=== PATIENT | female | born 1950 | race Caucasian/White ===

== ENCOUNTER 2018-10-08 08:37 | Day surgery (SDC) | payer MEDICARE, OTHER ==
[~2018-10-08 08:37] MED LIST: Lactated Ringers 1,000 ML IV SCH; Lidocaine 1%/Sod Bicarbonate in NS 8.4% 1 ML Syringe IDERM PRN; Sodium Chloride 0.9% 10 ML Syringe FLUSH PRN
[2018-10-08] MEDS ORDERED: Albuterol 0.083% 2.5 MG/3 ML Neb Soln NEB ONE (09:26)
[2018-10-08] MEDS ORDERED: Lidocaine 1% 30 ML SDV ONE (09:44)
[2018-10-08] MEDS ORDERED: Bupivacaine 0.25% 30 ML SDV ONE (09:45)
[2018-10-08] MEDS ORDERED: Clindamycin Phosphate 900 MG in Sodium Chloride 0.9% 100 ML IV ONE (10:00)
--- NOTE | 2018-10-08 11:29 | PCM.PREANE ---
Preanesthetic Assessment - Anesthesia/Transfusion/Family Hx Anesthesia History: Prior Anesthesia Without Reaction Family History of Anesthesia Reaction: No Transfusion History: No Prior Transfusion(s) - Review of Systems General: No Symptoms Pulmonary: Wheezing, Cough (due to smoking and COPD) Cardiovascular: No Symptoms Gastrointestinal: No Symptoms Neurological: No Symptoms Other: Reports: None - Physical Assessment NPO Status Date: 10/07/18 NPO Status Time: 22:00 Pulse: 70 O2 Sat by Pulse Oximetry: 92 Respiratory Rate: 16 Blood Pressure: 114/74 Temperature: 97.6 C Vital Signs: Last Vital Signs Temp 36.4 C 10/08/18 08:50 Pulse 70 10/08/18 08:50 Resp 16 10/08/18 08:50 BP 114/74 10/08/18 08:50 Pulse Ox 91 L 10/08/18 09:47 Height: 1.57 m Weight: 58.06 kg ASA Class: 2 Mental Status: Alert & Oriented x3 Airway Class: Mallampati = 1 Dentition: Reports: Normal Dentition, Dentures (upper and lower dentures) Thyro-Mental Finger Breadths: 3 Mouth Opening Finger Breadths: 3 ROM/Head Extension: Full Lungs: Wheezing (bilateral) Cardiovascular: Regular Rate, Regular Rhythm - Lab Values: Laboratory Last Values MRSA (PCR) Negative 09/30/18 15:00 - Allergies Allergies/Adverse Reactions: Allergies Allergy/AdvReac Type Severity Reaction Status Date / Time Penicillins Allergy Anaphylactic Verified 10/07/18 14:41 Shock - Acknowledgements Anesthesia Type Planned: MAC Pt an Appropriate Candidate for the Planned Anesthesia: Yes Alternatives and Risks of Anesthesia Discussed w Pt/Guardian: Yes Pt/Guardian Understands and Agrees with Anesthesia Plan: Yes PreAnesthesia Questionnaire HEENT History: Reports: Hard of Hearing, Impaired Vision, Other (See Below) Other HEENT History: has glasses, dentures Cardiovascular History: Reports: Hypertension Respiratory History: Reports: Asthma (pt states had asthma in the past not sure if it is still a current diagnosis), Bronchitis, Recurrent, COPD (has inhalers, prn) Gastrointestinal History: Reports: Other (See Below) Other Gastrointestinal History: ulcer Genitourinary History: Reports: None [employer] History: Reports: None Musculoskeletal History: Reports: Arthritis, Back Pain, Chronic, RA Neurological History: Reports: Headaches, Chronic (mild headache today) Psychiatric History: Reports: Depression, Other (See Below) Other Psychiatric History: eating disorder Endocrine/Metabolic History: Reports: None Hematologic History: Reports: None Immunologic History: Reports: None Oncologic (Cancer) History: Reports: None Dermatologic History: Reports: None - Past Surgical History Head Surgeries/Procedures: Reports: None HEENT Surgical History: Reports: Cataract Surgery Respiratory Surgical History: Reports: None GI Surgical History: Reports: Appendectomy, Cholecystectomy, Colonoscopy Female Surgical History: Reports: Hysterectomy, Tubal Ligation Male Surgical History: Reports: None Endocrine Surgical History: Reports: None Neurological Surgical History: Reports: None Musculoskeletal Surgical History: Reports: Other (See Below) Other Musculoskeletal Surgeries/Procedures:: left shoulder surgery Oncologic Surgical History: Reports: None Dermatological Surgical History: Reports: None - SUBSTANCE USE Smoking Status *Q: Current Every Day Smoker Recreational Drug Use History: No - HOME MEDS Home Medications: Home Meds Divalproex Sodium [Depakote ER] 500 mg PO DAILY 10/07/18 [History] Ibuprofen 400 mg PO BID PRN 10/07/18 [History] Multivitamin [Daily Multiple Vitamin] 1 tab PO DAILY 10/07/18 [History] Venlafaxine HCl [Venlafaxine ER] 225 mg PO DAILY 10/07/18 [History] busPIRone HCl [Buspirone HCl] 15 mg PO BID 10/07/18 [History] Acetaminophen/HYDROcodone [[place] 325-5 MG] 1 - 2 tab PO Q6H PRN #15 tablet 10/08 [Rx] - CURRENT (IN HOUSE) MEDS Current Meds: Current Medications Lactated Ringer's (Ringers, Lactated) 1,000 mls @ 125 mls/hr IV ASDIRECTED LETTY Stop: 10/08/18 23:00 Lidocaine/Sodium Bicarbonate (Buffered Lidocaine 1% In Ns 8.4%) 0.25 ml IDERM ONETIME PRN PRN Reason: Prior to IV Start Stop: 10/08/18 18:00 Sodium Chloride (Saline Flush) 10 ml FLUSH ASDIRECTED PRN PRN Reason: Keep Vein Open Stop: 10/08/18 18:00 Discontinued Medications Albuterol (Proventil Neb Soln) 2.5 mg NEB ONETIME ONE Stop: 10/08/18 09:27 Last Admin: 10/08/18 09:43 Dose: 2.5 mg Bupivacaine HCl (Marcaine 0.25%) Confirm Administered Dose 30 ml .[email or web address] ONE Stop: 10/08/18 09:46 Clindamycin Phosphate 900 mg/ (Sodium Chloride) 106 mls @ 212 mls/hr IV ONETIME ONE Stop: 10/08/18 10:29 Last Admin: 10/08/18 10:17 Dose: 212 mls/hr Lidocaine HCl (Xylocaine-Mpf 1%) Confirm Administered Dose 30 ml .ROUTE [email or web address] ONE Stop: 10/08/18 09:45
[2018-10-08] MEDS ORDERED: Lidocaine 1% 2 ML ONE ×2 (11:34)
[2018-10-08] MEDS ORDERED: Propofol 200 MG/20 ML SDV ONE (11:34)
[2018-10-08] MEDS ORDERED: Midazolam 1 MG/ML 2 ML SDV ONE (11:35)
[2018-10-08] MEDS ORDERED: fentaNYL 100 MCG/2 ML SDV ONE (11:35)
[2018-10-08] MEDS ORDERED: Ondansetron 4 MG/2 ML SDV ONE (11:57)
--- NOTE | 2018-10-08 12:22 | PCM48HPAN ---
Post Anesthesia Note - EVALUATION WITHIN 48HRS OF ANESTHETIC Vital Signs in Normal Range: Yes Patient Participated in Evaluation: Yes Respiratory Function Stable: Yes Airway Patent: Yes Cardiovascular Function Stable: Yes Hydration Status Stable: Yes Pain Control Satisfactory: Yes Nausea and Vomiting Control Satisfactory: Yes Mental Status Recovered: Yes Pulse Rate: 83 SaO2: 95 Resp Rate: 17 Temperature: 97.6 C Blood Pressure: 122/71 - COMMENTS/OBSERVATIONS Free Text/Narrative:: pt on O2 @ 2L/NC, HOB elevated, no c/o
--- NOTE | 2018-10-08 14:12 | PCM.OPNOTE ---
- General Post-Op/Procedure Note Date of Surgery/Procedure: 10/08/18 Operative Procedure(s): bilateral carpal tunnel release Pre Op Diagnosis: bilateral median nerve compression neuropathy Post-Op Diagnosis: Same Anesthesia Technique: Local, MAC Primary Surgeon: Gordo Vasques Anesthesia Provider: Anna Marie White Knockdown Man: Rebecca Marquis EBL in mLs: 5 Complications: None Condition: Good Free Text/Narrative:: Intake & Output 10/07/18 10/08/18 10/08/18 22:59 06:59 14:59 Intake Total 200 Balance 200
--- NOTE | 2018-10-09 11:13 | OR ---
DATE OF OPERATION: 10/08/2018 SURGEON: Gordo Vasques MD OPERATION PERFORMED: Bilateral carpal tunnel release. PREOPERATIVE DIAGNOSIS: Bilateral median nerve compression neuropathy. POSTOPERATIVE DIAGNOSIS: Bilateral median nerve compression neuropathy. ANESTHESIA: Local MAC. ANESTHESIA PROVIDER: Anna Marie White CRNA. SCRATCH POLISHER: Rebecca Marquis PA-C. ESTIMATED BLOOD LOSS: Less than 5 mL. COMPLICATIONS: None. CONDITION: Stable. DESCRIPTION OF PROCEDURE: The patient was identified in the preop holding area. Proper site was marked and identified by the surgeon. The patient was taken back to the operating theater where after adequate anesthesia, the patient's bilateral upper extremities were sterilely prepped and draped in the usual sterile fashion. OR time-out was performed. The patient did not receive antibiotics and is not indicated for soft tissue hand procedure. At this time, the left upper extremity was exsanguinated with the use of an Esmarch as a tourniquet on the forearm. 1% lidocaine without epinephrine and 0.25% Marcaine without epinephrine were used to anesthetize the palmar cutaneous branch of the median nerve as well as incisional site using Rangel's cardinal line and ulnar border of the fourth digit. Once this had set up and incision was made, blunt dissection was taken down to the palmar cutaneous fascia. The palmar cutaneous fascia was identified. A small rent was then made in the transverse carpal ligament, and a tenotomy scissor was used for release of the transverse carpal ligament all the way distally under direct visualization making sure to stop short of the palmar arch. At this time, attention was turned proximally. With the use of tenotomy scissors, the superficial forearm fascia as well as the transverse carpal ligament were resected all the way proximally making sure to keep the tips ulnar to protect the palmar cutaneous branch of the median nerve. At this time, adequate saline was irrigated through the wound. 4-0 nylon sutures were used for closure of the skin. A sterile soft dressing was applied. Attention was then turned to the right upper extremity. At this time, secondary to the IV set, I did not use the Esmarch and 1% lidocaine without epinephrine and 0.25% Marcaine without epinephrine were used to anesthetize as same fashion as the other side. Incision then was again made down to the transverse carpal ligament, and again, a tenotomy scissor was used for dissection of the transverse carpal ligament all the way distally on the right side. It was found to be adequately released. Attention was turned proximally and again, it was released in a similar fashion with no complications. Adequate saline was irrigated through the wound. It was closed in a similar fashion. Sterile soft dressing was applied to the bilateral upper extremities. The patient tolerated both procedures well and sent to PACU in stable condition. RICHARD /[id number]
== END 2018-10-08 13:10 | disposition home or self-care (01) ==
LOC: JD.SDS 08:37
PROVIDERS: ATTEND Orthopaedic Surgery
DX: G56.03 Carpal tunnel syndrome, bilateral upper limbs (principal); I10 Essential (primary) hypertension; J44.9 Chronic obstructive pulmonary disease, unspecified; Z79.899 Other long term (current) drug therapy; Z88.0 Allergy status to penicillin
CPT/HCPCS: 01810; 87641; 94640; J2001; J2250; J2405; J2704; J3010; J3490; J7030

== ENCOUNTER 2019-07-01 07:00 | Day surgery (SDC) | payer MEDICARE, MEDICAID ==
--- NOTE | 2019-07-01 07:26 | PCM.PREANE ---
Preanesthetic Assessment - Procedure Proposed Procedure: lEFT SHOULDER rcr - Anesthesia/Transfusion/Family Hx Anesthesia History: Prior Anesthesia Without Reaction Family History of Anesthesia Reaction: No Transfusion History: No Prior Transfusion(s) - Review of Systems General: No Symptoms Pulmonary: No Symptoms Cardiovascular: No Symptoms Gastrointestinal: No Symptoms Neurological: Numbness (LEFT HAND), Tingling (left hand) Other: Reports: None - Physical Assessment NPO Status Date: 06/30/19 NPO Status Time: 00:00 Height: 1.57 m Weight: 59.4 kg ASA Class: 2 Mental Status: Alert & Oriented x3 Dentition: Reports: Dentures Thyro-Mental Finger Breadths: 3 Mouth Opening Finger Breadths: 3 ROM/Head Extension: Limited/Partial (side to side with shoulder pain) Lungs: Clear to Auscultation, Normal Respiratory Effort Cardiovascular: Regular Rate, Regular Rhythm - Lab Values: Laboratory Last Values MRSA (PCR) Negative 06/30/19 13:23 - Allergies Allergies/Adverse Reactions: Allergies Allergy/AdvReac Type Severity Reaction Status Date / Time Penicillins Allergy Anaphylactic Verified 06/30/19 10:26 Shock - Blood Blood Available: No Product(s) Available: None - Anesthesia Plan Pre-Op Medication Ordered: None - Acknowledgements Anesthesia Type Planned: General Anesthesia, Regional Block (left interscalene block for post-op pain control) Pt an Appropriate Candidate for the Planned Anesthesia: Yes Alternatives and Risks of Anesthesia Discussed w Pt/Guardian: Yes Pt/Guardian Understands and Agrees with Anesthesia Plan: Yes PreAnesthesia Questionnaire HEENT History: Reports: Impaired Vision, Other (See Below) Other HEENT History: Full upper and lower dentures Cardiovascular History: Reports: None Respiratory History: Reports: None Gastrointestinal History: Reports: None Other Gastrointestinal History: ulcer Genitourinary History: Reports: None DIRECTOR MEDICAL History: Reports: Musculoskeletal History: Reports: Other (See Below) Other Musculoskeletal History: Bilateral carpal tunnel syndrome Neurological History: Reports: Migraines Psychiatric History: Reports: Anxiety, Depression Other Psychiatric History: eating disorder Endocrine/Metabolic History: Reports: None Hematologic History: Reports: None Immunologic History: Reports: None Oncologic (Cancer) History: Reports: None Dermatologic History: Reports: None - Past Surgical History Head Surgeries/Procedures: Reports: None HEENT Surgical History: Reports: None Cardiovascular Surgical History: Reports: None Respiratory Surgical History: Reports: None GI Surgical History: Reports: Appendectomy, Cholecystectomy Female Surgical History: Reports: Hysterectomy, Tubal Ligation Endocrine Surgical History: Reports: None Neurological Surgical History: Reports: None Musculoskeletal Surgical History: Reports: Other (See Below) Other Musculoskeletal Surgeries/Procedures:: Bilateral carpal tunnel release, Right shoulder rotator cuff repair Oncologic Surgical History: Reports: None Dermatological Surgical History: Reports: None - SUBSTANCE USE Smoking Status *Q: Current Every Day Smoker Tobacco Use Within Last Twelve Months: Cigarettes Second Hand Smoke Exposure: Yes Days Per Week of Alcohol Use: 1 Number of Drinks Per Day: 1 Total Drinks Per Week: 1 Recreational Drug Use History: Yes Recreational Drug Type: Reports: Methamphetamine - HOME MEDS Home Medications: Home Meds Divalproex Sodium [Depakote ER] 500 mg PO DAILY 10/07/18 [History] Multivitamin [Daily Multiple Vitamin] 1 tab PO DAILY 10/07/18 [History] Venlafaxine HCl [Venlafaxine ER] 225 mg PO DAILY 10/07/18 [History] busPIRone HCl [Buspirone HCl] 15 mg PO BID 10/07/18 [History] Acetaminophen/HYDROcodone [[place] 325-5 MG] 1 - 2 tab PO Q6H PRN #40 tablet 07/01 [Rx] Cyclobenzaprine [Flexeril] 5 mg PO BID PRN #20 tab 07/01/19 [Rx] - CURRENT (IN HOUSE) MEDS Current Meds: Current Medications Epinephrine HCl (Adrenalin) 3 mg .XX ONETIME LETTY Stop: 07/01/19 13:00 Lactated Ringer's (Ringers, Lactated) 1,000 mls @ 125 mls/hr IV ASDIRECTED LETTY Stop: 07/01/19 23:00 Clindamycin Phosphate 900 mg/ (Premix) 50 mls @ 100 mls/hr IV ONETIME LETTY Stop: 07/01/19 12:00 Lidocaine/Sodium Bicarbonate (Buffered Lidocaine 1% In Ns 8.4%) 0.25 ml IDERM ONETIME PRN PRN Reason: Prior to IV Start Stop: 07/01/19 18:00 Sodium Chloride (Saline Flush) 10 ml FLUSH ASDIRECTED PRN PRN Reason: Keep Vein Open Stop: 07/01/19 18:00
[2019-07-01] MEDS ORDERED: Rocuronium 50 MG/5 ML Vial ONE (07:36)
[2019-07-01] MEDS ORDERED: Ondansetron 4 MG/2 ML SDV ONE (07:36)
[2019-07-01] MEDS ORDERED: Propofol 200 MG/20 ML SDV ONE (07:36)
[2019-07-01] MEDS ORDERED: fentaNYL 100 MCG/2 ML SDV ONE ×2 (07:37→09:00)
[2019-07-01] MEDS ORDERED: Lidocaine 1% 4 ML ONE (07:37)
[2019-07-01] MEDS ORDERED: Midazolam 1 MG/ML 2 ML SDV ONE (07:37)
[2019-07-01] MEDS ORDERED: Lidocaine 1% 2 ML ONE (07:40)
[2019-07-01] MEDS ORDERED: Ropivacaine 0.5% 5 MG/ML 30 ML SDV ONE (07:46)
[2019-07-01] MEDS ORDERED: Clindamycin Phosphate in D5W 900 MG in Premix Bag 1 BAG IV SCH ×2 (08:00)
[2019-07-01] MEDS ORDERED: EPINEPHrine 1 MG/ML 30 ML MDV SCH (08:00)
--- NOTE | 2019-07-01 08:22 | PCM.SN ---
- Free Text/Narrative Note: Date: 07/01/2019 Time Out: 0753 Start: 075 Stop: 0808 Surgical Procedure: Left Shoulder Video Arthroscopy with Rotator Cuff Repair Diagnosis: Left shoulder pain Current Procedure: Left interscalene block under US guidance for postoperative pain control requested by Dr. Vasques. Patient chart reviewed, risk/benefits discussed with patient, consent obtained. Patient positioned supine, monitors/alarms on, oxygen placed via nasal cannula at 2 LPM. IV sedation administered: Versed 2mg IV Fentanyl 100mcg IV Left shoulder prepped with chloraprep x2. Sterile drapes placed with aseptic technique. Under US guidance (sterile US sleeve) right subclavian artery visualized along with the left brachial plexus. Plexus followed cephalad up to C6 cricoid level, and area localized with 2mls of 1% lidocaine. 22gauge 2 inch stimiplex needle inserted under US and guided to brachial plexus C5-C6 trunks with 0.44mV with stimulation of biceps noted. Stimulation abolished at 0.4mVs. with 1ml of Normal Saline injected to confirm needle not placed intraneurally. Incremental injection of 5mls with negative aspiration prior to each injection of 0.5% ropivacaine with 1:200,000 epinephrine. Total volume=30mls. Please refer to nurses notes for vital signs, patient tolerated procedure well. Thank you! Sid Mahajan CRNA
[2019-07-01] MEDS ORDERED: fentaNYL 100 MCG/2 ML SDV IVPUSH PRN (10:34)
--- NOTE | 2019-07-01 10:35 | PCM.POSTAN ---
POST ANESTHESIA ASSESSMENT - MENTAL STATUS Mental Status: Alert, Oriented - VITAL SIGNS Vital Signs: Last Vital Signs Temp 36.7 C 07/01/19 07:05 Pulse 69 07/01/19 08:05 Resp 16 07/01/19 08:10 BP 116/70 07/01/19 08:10 Pulse Ox 94 L 07/01/19 08:10 - RESPIRATORY Respiratory Status: Respiratory Rate WNL, Airway Patent, O2 Saturation Stable, Supplemental Oxygen - CARDIOVASCULAR CV Status: Pulse Rate WNL, Blood Pressure Stable - GASTROINTESTINAL GI Status: No Symptoms - PAIN Pain Score: 0 - POST OP HYDRATION Hydration Status: Adequate & Stable - OBSERVATIONS Free Text/Narrative:: no anesthesia complications noted
[2019-07-01] MEDS ORDERED: Albuterol 0.083% 2.5 MG/3 ML Neb Soln ONE (11:41)
[2019-07-01] MEDS ORDERED: Albuterol 0.083% 2.5 MG/3 ML Neb Soln NEB ONE (12:00)
--- NOTE | 2019-07-01 12:14 | PCM48HPAN ---
Post Anesthesia Note - EVALUATION WITHIN 48HRS OF ANESTHETIC Vital Signs in Normal Range: Yes Patient Participated in Evaluation: Yes Respiratory Function Stable: Yes Airway Patent: Yes (breathing treatment) Cardiovascular Function Stable: Yes Hydration Status Stable: Yes Pain Control Satisfactory: Yes Nausea and Vomiting Control Satisfactory: Yes Mental Status Recovered: Yes Vital Signs: Last Vital Signs Temp 36.2 C 07/01/19 11:15 Pulse 69 07/01/19 08:05 Resp 17 07/01/19 11:15 BP 135/79 07/01/19 11:15 Pulse Ox 95 07/01/19 11:44 - COMMENTS/OBSERVATIONS Free Text/Narrative:: no anesthesia complications noted
--- NOTE | 2019-07-05 10:11 | PCM.OPNOTE ---
- General Post-Op/Procedure Note Date of Surgery/Procedure: 07/01/19 Operative Procedure(s): left shoulder video arthroscopy with large rotator cuff repair, biceps tenotomy and extensive debridement Pre Op Diagnosis: left shoulder rotator cuff tear with bursitis Post-Op Diagnosis: Same Anesthesia Technique: General ET Tube, Regional Block Primary Surgeon: Gordo Vasques Anesthesia Provider: Sid Mahajan [employer] Team Member: Rebecca Marquis EBL in mLs: 5 Complications: None Condition: Good
--- NOTE | 2019-07-05 10:59 | OR ---
DATE OF OPERATION: 07/01/2019 SURGEON: Gordo Vasques MD OPERATION PERFORMED: Left shoulder video arthroscopy with large rotator cuff repair, biceps tenotomy, and extensive debridement. PREOPERATIVE DIAGNOSIS: Left shoulder rotator cuff tear with bursitis. POSTOPERATIVE DIAGNOSIS: Left shoulder rotator cuff tear with bursitis with biceps tendinopathy. ANESTHESIA: General endotracheal intubation with regional interscalene block. ANESTHESIA PROVIDER: Kendrick Martinez. SURVEY RESEARCH MANAGER: Rebecca Marquis PA-C. ESTIMATED BLOOD LOSS: Less than 5 mL. COMPLICATIONS: None. CONDITION: Stable. DESCRIPTION OF PROCEDURE: The patient was identified in the preoperative holding area. Proper site was marked and identified by the surgeon. The patient was taken back to the operating theater where after adequate anesthesia, the patient's left upper extremity was sterilely prepped and draped in the usual sterile fashion. A wedge was placed posteriorly. The patient was secured to the table. Left upper extremity then had 10 pounds of traction applied. OR time-out was performed. The patient received 2 g IV Ancef. At this time, standard posterior incision was made. The scope trocar was introduced to the glenohumeral joint. With the use of a spinal needle, anterior portal was then created with outside-in technique. The patient was noted to have full-thickness rotator cuff tear of the supraspinatus as well as the anterior portion of the infraspinatus with no retraction. She had significant biceps fraying and tendinopathy noted as well as chondrocalcinosis of the glenoid and the anterior labrum. At this time, it was decided secondary to the patient's severe degenerative changes of the biceps tendon, a biceps tenotomy would be performed. Biceps tenotomy was completed and was found to be lodged in the groove. An extensive debridement of synovitis was then done inside the joint and attention was turned to the subacromial space, and a lateral portal was then created with the use of a spinal needle, and an extensive debridement of the severe synovitis and bursitis were then undertaken at this time. After this, a heidy was then used to create a good bony bleeding bed in the previous footprint of the supraspinatus. One 4.75 mm triple loaded anchor with FiberTape was then placed medially. The patient was noted to have significant osteoporotic bone. I was able to just push the awl in with my hand with little difficulty. The anchor did have good fixation though. At this time, the 4 limbs of FiberWire as well as the 2 limbs of FiberTape were placed anteriorly to posteriorly and was found to have adequate coverage of the tear. The 4 limbs of FiberWire were tied medially for a medial row repair. One suture limb from each of those was then cut, and then the 2 limbs of FiberTape and 2 limbs of FiberWire were then brought out laterally. Another 4.75 mm Arthrex SwiveLock anchor was then placed laterally and the 4 limbs of the previous medial row were then placed in this and/or tensioned until it had good compression across the rotator cuff tear site. The suture limbs were then cut. At this time, it was decided I would not do a subacromial decompression as the patient did have severely osteoporotic bone. She has a very small BMI and possibly need for possible reverse total shoulder arthroplasty in the future. Excess saline was drained from the shoulder. 3-0 nylon suture was used for closure of the skin. The patient was placed in a sterile soft dressing and a pillow sling and sent to PACU in stable condition. MMARMANDO /[id number]
== END 2019-07-01 12:30 | disposition home or self-care (01) ==
LOC: JD.SDS 07:00
PROVIDERS: ATTEND Orthopaedic Surgery
DX: M75.122 Complete rotator cuff tear or rupture of left shoulder, not specified as traumatic (principal); M75.52 Bursitis of left shoulder; M75.22 Bicipital tendinitis, left shoulder; G43.909 Migraine, unspecified, not intractable, without status migrainosus; F17.210 Nicotine dependence, cigarettes, uncomplicated; F32.9 Major depressive disorder, single episode, unspecified; F41.9 Anxiety disorder, unspecified; Z88.0 Allergy status to penicillin; Z79.899 Other long term (current) drug therapy
CPT/HCPCS: 29823; 29827; 87641; 94640; C1713; J0171; J2001; J2250; J2405; J2704; J2795; J3010; J3490; J7120; 01630; 64415